=== PATIENT | female | born 1950 | race Two or more races ===

== ENCOUNTER 2025-06-09 16:07 | Outpatient (AMB) | payer OTHER, SELFPAY ==
--- NOTE | 2025-06-09 16:10 | A.OFFVIS_ITS ---
Intake Visit Reasons: 6 months follow up Allergies No Known Allergies Allergy (Verified 03/23/25 11:29) HPI Comments Details: 74 y/o woman with depression, anxiety, asthma, GERD, cerebral microvascular disease, mild cognitive impairment, and tremor affecting her hands, head, and speech. She is presenting for a follow-up visit for management of tremor and discussion of a recent fall with wrist fracture. The patient reports a recent fall in her kitchen, which resulted in a broken wrist. She denies any loss of consciousness associated with the fall and is scheduled for a follow-up appointment with an orthopedist. The patient has a history of tremor treated with primidone three times daily and propranolol twice daily. She clarifies that she takes propranolol for her tremor, not for hypertension, and mentions that this often causes confusion for other doctors. The patient also takes fluoxetine, clonazepam, and an unspecified sleeping pill. [facility] Medical History (Updated 06/09/25 @ 16:14 by Violeta Mello MD) Cerebral microvascular disease MCI (mild cognitive impairment) Depression with anxiety Tremor of face and hands Review of Systems Narrative - Neurological: Denies loss of consciousness with a recent fall. - Musculoskeletal: Reports a recent fall resulting in a broken wrist. - Psychiatric: Reports her mood is okay. - Sleep: Reports taking sleeping pills. - Cardiovascular: Denies high blood pressure. Physical Exam Neuro Other: Mental Status: Alert and oriented to person, place, and time. Normal attention. Normal spontaneous speech, fluency, and comprehension. Cranial Nerves: CN II: Visual thurman full to confrontation, visual acuity intact. CN III, IV, : Pupils equal, round, reactive to light and accommodation. Extraocular movements are normal. CN V: Facial sensation is normal. CN VII: Facial movements symmetrical. CN VIII: Hearing intact to bedside conversation is normal. CN IX, X: Palate elevates symmetrically. CN XI: Shoulder shrug and head turn symmetrical. CN XII: Tongue midline without atrophy or fasciculations. Motor: Bulk and tone normal in all extremities. No significant muscle weakness in arms and legs. No drift. Reflexes: Deep tendon reflexes 2+ and symmetric. Plantar response down-going bilaterally. Coordination: [id number]-[id number] and [id number] testing normal. No dysmetria. Gait and Station: No obvious gait abnormality. No ataxia or instability. Sensory: Intact to light touch, pinprick, and vibration. Romberg is negative. Extrapyramidal: Full facial expressions and blinking. No rigidity. Movements are appropriate with no significant tremor or abnormality. Speech: Normal; no dysarthria or tremor. Assessment & Plan Assessment & Plan (1) Tremor: Comment: CT brain WO at in Aug 2014: mild bifrontal atrophy MRI brain WO at in 2010: non specific WM abnormalities (reported). Code(s): R25.1 - Tremor, unspecified Category: Medical Plan Impression: Benign essential tremor Rec: a: Primidone 50mg, 3, three times a day b: Propranalol 20m, 2 times a day I reviewed the patient's condition and recent fall, which resulted in a broken wrist. I informed her that a head CT is not needed at this time as she did not lose consciousness. We discussed her medications, clarifying that propranolol is for her tremor and not hypertension. I confirmed she continues to take primidone, fluoxetine, and clonazepam. I will send her prescriptions. She was advised to continue with her orthopedic follow-up for the wrist fracture and to be careful to avoid further injury. Medications: Changed From primidone 150 mg (3 x 50 mg) PO BID 30 days 180 tabs 5RF To primidone 150 mg (3 x 50 mg) PO BID 540 tabs 1RF 90 days Refilled propranolol 20 mg PO ONCE 90 tabs 1RF Coding Level of Care Code Est Pt Level 3 (23344) Diagnoses Tremor R25.1
--- OUTSIDE RECORDS SUMMARY | 2025-06-10 00:47 | XMS_ITS | Encounter Summary ---
Author Organization [facility] Address [address] [place] [address] Care Team Providers Care Program Administrator Name Role Phone Nadia Barker MD Primary Care Prov ider Reason for Visit * Reason Onset Date Comments Results 05/10/2025 Encounter Details Date Type Department Care Team (Late st Contact Info) Description 05/10/2025 Telephone Adult Medicine [address] [phone] Nadia Barker MD [address] [place] [address] Social History Tobacco Use Types Packs/Day Years Used Date Smoking Tobacco: Former Cigarettes 28.3 0 1991 - 01/13/2020 Smokeless Tobacco: Never Alcohol Use Standard Drinks/Week Comments No 0 (1 standard drink = 0.6 oz pur e alcohol) Comments No Sex and Gender Information Value Date Recorded Sex Assigned at Female 05/25/2024 9:08 PM EST Legal Sex Female 2:15 AM EST Gender Identity Female 05/25/2024 9:08 PM EST Sexual Orientation Straight 05/25/2024 9: 08 PM EST documented as of this encounter Progress Notes * Cassia Costa RN - 05/13/2025 12:18 PM EST Called pt. She states she is all set she received the letter of her ultrasound results * Shavon A Say - 05/10/2025 2:34 PM EST Inform patient: ANY URGENT OR ABNORMAL RESULTS WIILL RESULT IN A CALL BACK TO THE PATIENT HANNAH. Type of test: :vascular ultrasound Date test was performed: 04/30/2025 Where was the test performed: [facility] Who ordered this test?: Nadia Aldridge MD Is the doctor here today?: yes Can the message wait until the doctor returns?: no IF PATIENT'S PCP IS NOT IN INSTRUCT PATIENT THAT THEY WILL RECEIVE A CALL BACK WHEN THE PCP IS IN THE OFFICE NEXT. documented in this encounter Plan of Treatment Upcoming Encounters Date Type Department Care Team (Late st Contact Info) Description 07/14/2025 1:00 PM EST Office Visit Orthopedic Surgery - [place] [address] [facility] [address] [place] [phone] Darien Urias, DPM [address] [address] 10/04/2025 12:30 PM EDT Office Visit Adult Medicine [address] [phone] Nadia Barker MD [address] [place] [address] 02/11/2026 3:00 PM EDT Office Visit Gastroenterology - [address] [facility] [address] [place] [phone] Criss Cooper NP [address] [facility] [address] [place] [address] 05/04/2026 2:00 PM EST Office Visit Pulmonology - [place] [address] [facility] [address] [place] [phone] Isaiah Jorge MD [address] [place] [phone] documented as of this encounter Visit Diagnoses Not on filedocumented in this encounter Additional Health Concerns Assessment Noted Time PHQ-9 Depression Total Score: 0 09/30/19 11:35 AM EDT A fall risk assessment has been complete d for the patient 09/29/2024 11:33 AM EDT documented as of this encounter Care Teams Program Administrator Relationship Specialty Start Date End Date Nadia Barker MD [address] [place] [phone] PCP - General Internal Medicine 05/25/24 documented as of this encounter
--- OUTSIDE RECORDS SUMMARY | 2025-06-10 00:47 | XMS_ITS | Clinical Summary ---
Author Organization [facility] [address] [place] [address] [address] [place] [address] Phone Care Team Providers Care Sales Advisory Manager Name Role Phone Nadia Barker MD Primary Care Prov ider Allergies No known active allergies Medications calcium carbonate-vitam in D3 500 mg-3.125 mcg (125 unit) tablet per tabelt Take 500 mg by mouth. 3 Active calcium carbonate-vitam in D (Oysco 500/D) 500 mg-5 mcg (200 unit) per tablet Take 1 tablet by mouth 1 (one) time each day. 3 Active clonazePAM (KlonoPIN) 1 mg tablet Take 1 tablet (1 mg total) by mouth. Active docusate sodium (COLACE) 100 mg capsule Take 1 capsule (100 mg total) by mouth 2 (two) times a day. 3 Active FLUoxetine (PROzac) 40 mg capsule Take 1 capsule (40 mg total) by mouth. Active fluticasone-jeanne meterol (Wixela Inhub) 250-50 mcg/dose diskus inhaler Inhale 1 puff by mouth 2 (two) times a day. 3 Active glycerin (adult) suppository Insert 1 suppository (2 g total) into the rectum. 1 Active hydrOXYzine pamoate (VISTARIL) 25 mg capsule TAKE 1 TO 2 CAPSULES BY MOUTH FOUR TIMES DAILY NEEDED 2 Active primidone (MYSOLINE) 50 mg tablet Take 1 tablet (50 mg total) by mouth. Active propranoloL (INDERAL) 20 mg tablet Take 1 tablet (20 mg total) by mouth. Active polyethylene glycol 3350 (GLYCOLAX ORAL) MIX 17 GRAMS IN LIQUID AND DRINK BY MOUTH DAILY 3 Active calcium carbonate (Antacid, calcium carbonate,) 500 mg (200 mg elemental calcium) chewable tablet Chew 1 (one) time each day. 3 Active cyclobenzaprine (FLEXERIL) 10 mg tablet Take 1 tablet (10 mg total) by mouth 3 (three) times a day if needed. 4 Active naproxen (NAPROSYN) 500 mg tablet Take 1 tablet (500 mg total) by mouth 2 (two) times a day with meals. 4 Active magnesium aspart,citrate, oxide (Triple Magnesium Complex) 400 mg magnesium capsule Take 1 capsule by mouth 1 (one) time each day. 4 Active linaCLOtide (Linzess) 290 mcg capsule Take 1 capsule (290 mcg total) by mouth. 4 Active famotidine (PEPCID) 20 mg tablet Take 1 tablet (20 mg total) by mouth 2 (two) times a day. 4 Active albuterol HFA (Ventolin HFA) 90 mcg/actuation inhaler Inhale 2 puffs by mouth every 4 (four) hours if needed for wheezing or shortness of breath. 6.7 g 2 5 Active fluticasone propionate (FLONASE) 50 mcg/actuation nasal spray INSTILL 2 SPRAYS IN EACH NOSTRIL DAILY 16 g 1 5 Active cyanocobalamin (VITAMIN B-12) 1,000 mcg tablet Take 1 tablet (1,000 mcg total) by mouth 1 (one) time each day. 90 tablet 5 Active cetirizine (ZyrTEC) 10 mg tablet Take 1 tablet (10 mg total) by mouth 1 (one) time each day. 30 tablet 5 Active ibuprofen (ADVIL,MOTRIN) 600 mg tablet TAKE 1 TABLET BY MOUTH EVERY 8 HOURS NEEDED FOR PAIN 20 tablet 5 Active cholecalciferol (VITAMIN D-3) 50 mcg (2,000 unit) tablet TAKE 1 TABLET BY MOUTH DAILY 30 tablet 5 5 Active omeprazole (PriLOSEC) [address] capsule TAKE 1 CAPSULE BY MOUTH DAILY 30 capsule 5 5 Active aspirin 81 mg EC tablet TAKE 1 TABLET BY MOUTH DAILY 30 tablet 5 5 Active plecanatide (Trulance) 3 mg tablet Take 1 tablet (3 mg total) by mouth 1 (one) time each day. 90 each 3 5 026 Active Trulance 3 mg tablet TAKE 1 TABLET BY MOUTH DAILY. 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 Traumatic ecchymosis of multiple sites of left u pper arm 04/23/2019 Lumbar spondylosis 08/06/2018 Hives of unknown origin 03/19/2017 Transaminitis 02/18/2017 Colon polyp 11/13/2015 Overview (09/09/2023): 11/07/15 colonoscopy - 1cm tubular adenoma Rpt 3 yrs Lung nodule, multiple 10/28/2015 Overview (09/09/2023): Bein followed byt Dr. Isaiah Jorge, next repeat chest ct in 6 month in 03/2016 Chronic rhinitis 09/13/2015 Thick nasal mucus 09/13/2015 Overview (09/09/2023): Egd neg 11/07/15, normal esoph bx Thyroid nodule 08/11/2015 Overview (09/09/2023): [facility] neck ct showing rigth thyroid nodule 08/03/2015 Dysphagia 07/06/2015 Eye dryness 06/02/2014 Overview (09/09/2023): Patient is following with [facility] and she is prescribed Restasis/artifical tears History of cholecystectomy 02/08/2014 DJD (degenerative joint disease), ankle and foot 10/29/2013 Foot pain, right 07/15/2013 Cervical spine disease 11/27/2012 Overview (09/09/2023): Patient had disc surgery with Dr Mohan on 09/2012 Essential tremor 11/27/2012 Overview (09/09/2023): On Propranolol Degenerative arthritis of thumb, right 3 COPD (chronic obstructive pulmonary disease) 01/2012 Assessment & Plan (04/06/2025 2:39 PM EDT): Well controlled, no visits to emergency or exacerbations. Continue albuterol as needed, Wixela as a controller medication. Assessment & Plan (10/06/2024 10:41 AM EDT): Recent exacerbation that required ER evaluation. She feels better now. Continue Albuterol prn. Assessment & Plan (09/29/2024 12:03 PM EDT): Orders: Nebulizer Head ache 08/14/2011 High cholesterol 07/07/2010 RCT (rotator cuff tear) 02/07/2010 Tobacco use disorder 02/07/2010 Anxiety state 06/11/2006 Idiopathic osteoporosis 06/11/2006 Encounters Date Type Department Care Team Description 06/04/2025 Telephone Gastroenterology [facility] 175 [facility] 175 [facility] [address] [place] [phone] Criss Cooper NP 05/25/2025 12:30 PM EST Ancillary Procedure [facility] Cardiology [facility] [address] [phone] Bilateral leg edema; Dizziness 05/10/2025 Telephone Adult Medicine [address] [phone] Nadia Smith MD 05/03/2025 2:00 PM EST Office Visit Pulmonology [facility] 175 [facility] [address] [place] [phone] Isaiah Jorge MD Mild persistent asthma, unspecified whether complicated (Primary Dx); Cough, unspecified type 04/30/2025 12:00 PM EDT Ancillary Procedure [facility] [address] [phone] Bilateral leg edema 04/30/2025 Results Follow-Up Adult Medicine [address] [phone] Fanny Muhammad PA 04/08/2025 Results Follow-Up Adult Medicine [address] [phone] Karla Jeffries PA 04/06/2025 1:00 PM EDT Office Visit Adult Medicine [address] [phone] Nadia Smith MD Chronic obstructive pulmonary disease, unspecified COPD type (CMS/HCC V24, CMS/HCC V28) (Primary Dx); Bilateral leg edema from Last 3 Months Immunizations Immunization Administration Dates Next Due Influenza trivalent, 0.5mL ( Fluzone High-dose) 65yo and older 04/30/2022,05/08/2021,04/11/2020,04/03,03/11/2018,03/19/2017 Influenza trivalent, 0.5mL, preservative free (Fluarix; FluLaval; Fluzone) ages 6mo and older (Afluria) 3 years and older 04/30/2022 Influenza trivalent, with pr eservative (Fluzone; Afluria) 6mo and older 04/04/2016,03/09/2015,04/04/2014,04/02,03/28/2012,04/19/2011,04/22/2010 ,03/31/2009,03/22/2008,05/29/2007,05/31 Pneumococcal conjugate 13 va lent (Prevnar 13, PCV13) 2mo and older 07/24/2017 Pneumococcal polysaccharide 23 valent (Pneumovax 23) 2yo and older 09/18/2018,04/07/2016,10/30/2011,07/07 Td Tetanus diptheria (Tdvax) 7yo and older 06/02/2003,06/02/2003 Tdap Tetanus diptheria acell ular pertussis (Boostrix; Adacel) 7yo and older 03/23/2019,05/07/2016,01/26/2016,06/02 Surgical History Surgery Date Site/Laterality Comments TUBAL LIGATION PROCEDURE: HISTORICAL TUBAL LIGATION TONSILLECTOMY PROCEDURE: HISTORICAL TONSILLECTOMY ROTATOR CUFF REPAIR 2009 PROCEDURE: HISTORICAL ROTATOR CUFF REPAIR SHOULDER ARTHROSCOPY 04/14/2012 PROCEDURE: CO SURGICAL ARTHROSCOPY SHOULDER W/LSS&RESCJ ADS; COMMENT: Dr. Coats OTHER SURGICAL HISTORY PROCEDURE: ---- OTHER ----; COMMENT: foot bone spure removal FOOT SURGERY PROCEDURE: HISTORICAL FOOT SURGERY OTHER SURGICAL HISTORY PROCEDURE: ---- OTHER ----; COMMENT: cervical spine surgery UPPER GASTROINTESTINAL ENDOSCOPY 11/07/2015 PROCEDURE: CO UPPER GI ENDOSCOPY PERFORMED; COMMENT: Random esophageal biopsies=> normal, otherwise normal COLONOSCOPY 11/07/2015 PROCEDURE: HISTORICAL COLONOSCOPY; COMMENT: 1 cm polyp at 30 cm => tubular adenoma, 4 mm anal verge polyp=> hyperplastic COLONOSCOPY 05/13/2012 PROCEDURE: HISTORICAL COLONOSCOPY; COMMENT: normal UPPER GASTROINTESTINAL ENDOSCOPY 05/13/2012 PROCEDURE: CO UPPER GI ENDOSCOPY PERFORMED; COMMENT: normal COLONOSCOPY 2004 PROCEDURE: HISTORICAL COLONOSCOPY; COMMENT: normal COLONOSCOPY 03/11/2020 PROCEDURE: HISTORICAL COLONOSCOPY; COMMENT: 4 mm rectal polyp. Path: Tubular adenoma. 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 Chronic constipation DX:Chronic constipation Small bowel obstruction (CMS /HCC V24, CMS/HCC V28) DX:Small bowel obstruction ( HCC) Cervical spondylosis without myelopathy DX:Cervical spondylosis with out myelopathy Depressive disorder DX:Depressiv e disorder Hyperlipidemia DX:Hyperlipidemi a Esophageal reflux DX:Esophageal reflux Constipation DX:Constipation Family History Medical History Relation Name Comments Brain cancer Aunt Diabetes Brother Heart attack Father Stomach cancer Mother Hypertension Sister 1 Colon polyps Sister 2 three sisters Colon cancer Neg Hx Relation Name Status Comments Aunt Brother Father Mother Sister 1 Sister 2 Social History Tobacco Use Types Packs/Day Years Used Date Smoking Tobacco: Former Cigarettes 28.3 0 1991 - 01/13/2020 Smokeless Tobacco: Never Tobacco Cessation:Counseling Given: Not Answered Alcohol Use Standard Drinks/Week Comments No 0 (1 standard drink = 0.6 oz pur e alcohol) Comments No Sex and Gender Information Value Date Recorded Sex Assigned at Female 05/25/2024 9:08 PM EST Legal Sex Female 2:15 AM EST Gender Identity Female 05/25/2024 9:08 PM EST Sexual Orientation Straight 05/25/2024 9: 08 PM EST Last Filed Vital Signs Vital Sign Reading Time Taken Comments Blood Pressure 138/75 05/25/2025 1:31 PM EST Pulse 70 05/03/2025 2:02 PM EST Temperature 36.2 C (97.2 F) 05/03/2025 2:02 PM EST Respiratory Rate 16 05/03/2025 2:02 PM EST Oxygen Saturation 98% 05/03/2025 2:02 PM EST Inhaled Oxygen Concentration - - Weight 74.8 kg (165 lb) 05/25/2025 1:31 PM EST Height 157.5 cm (5' 2 ) 05/25/2025 1:31 PM EST Body Mass Index 30.18 05/25/2025 1:31 PM EST Plan of Treatment Upcoming Encounters Date Type Department Care Team (Late st Contact Info) Description 07/14/2025 1:00 PM EST Office Visit Orthopedic Surgery - [place] [address] 175 [facility] [address] [place] [phone] Darien Urias, RENZO 175 [facility] [address] [place] [address] 10/04/2025 12:30 PM EDT Office Visit Adult Medicine [facility] [address] [place], [place] [phone] Nadia Barker MD [address] [place], [place] 02/11/2026 3:00 PM EDT Office Visit Gastroenterology - 299 [facility] 299 [facility] [address] [place] [phone] Criss Cooper, BETI 299 [facility] [address] [place] [address] 05/04/2026 2:00 PM EST Office Visit Pulmonology - [place] 175 [facility] [address] [place] [phone] Isaiah Jorge MD [address] [place] [phone] Health Maintenance Due Date Last Done Comments Drug Screen 1950 Non-Opioid Controlled Substance Agreement 1950 RSV Immunization Adult Patients (1 - Risk 50-74 years 1-dose series) 10/07/2001 Osteoporosis Screening (Bone Density Screening) 02/16/2024 02/15/2022, 05/19/2019 COVID-19 Vaccine ( season) 2025 06/13/2021, 10/14/2020, 09/23/2020 Influenza Vaccine (#1) 2025 , 04/30/2022, 05/08/2021, Additional history exists Breast Cancer Screening 07/17/2025 07/17/2023 Falls Risk Assessment 09/29/2025 09/29/2024, 024 Social Influencers of Health Screening 09/29/2025 09/29/2024 Colorectal Cancer Screening: Colonoscopy 05/01/2026 05/01/2021 Cholesterol Screening (Lipid Panel) 01/15/2028 01/14/2023 DTaP,Tdap,and Td Vaccines (7 - Td or Tdap) 03/23/2029 03/23/2019, 05/07/2016, 01/26/2016, Additional history exists Pneumococcal Vaccine: 50+ Years Completed 09/18/2018, 07/24/2017, 04/07/2016, Additional history exists Hepatitis C Screening Completed 10/19/2019 Depression Screening Completed 09/29/2024 Medicare Annual Wellness Visit Discontinued 09/29/2024 HIB Vaccines Aged Out No longer eligi ble based on patient's age to complete this topic HPV Vaccines Aged Out No longer eligi ble based on patient's age to complete this topic Hepatitis A Vaccines Aged Out No long er eligible based on patient's age to complete this topic Hepatitis B Vaccines Aged Out No long er eligible based on patient's age to complete this topic IPV Vaccines Aged Out No longer eligi ble based on patient's age to complete this topic MMR Vaccines Aged Out No longer eligi ble based on patient's age to complete this topic Meningococcal ACWY Vaccine Aged Out N o longer eligible based on patient's age to complete this topic Meningococcal B Vaccine Aged Out No l onger eligible based on patient's age to complete this topic RSV Immunization Patients Under 20 months Aged Out No longer eligible based on patient's age to complete this topic Varicella Vaccines Aged Out No longer eligible based on patient's age to complete this topic Zoster Vaccines Discontinued Procedures Procedure Name Priority Date/Time Associated Diagnosis Comments TRANSTHORACIC ECHOCARDIOGRAM (TTE) COMPLETE Routine 05/26/2025 9:46 AM EST Bilateral leg edema Dizziness VAS US DUPLEX LOWER EXT VENOUS INSUFFICIENCY BILATERAL Routine 04/30/2025 12:27 PM EDT Bilateral leg edema THYROID STIMULATING HORMONE Routine 04/06/2025 2:00 PM EDT Bilateral leg edema DXA BONE DENSITY STUDY 1+ SITS AXIAL SKEL Routine 02/15/2022 3:10 PM EDT Other osteoporosis without current pathological fracture EXTERNAL COLONOSCOPY REPORT Routine 05/01/2021 2:27 PM EDT from Last 3 Months or Most Recently Relevant to Health Maintenance Results * (ABNORMAL) TRANSTHORACIC ECHOCARDIOGRAM (TTE) COMPLETE (05/26/2025 9:46 AM EST) Left Atrium Minor [place] 5.2 cm CV PACS Left Atrium Major [place] 5.3 cm CV PACS LA Area Sys (A2C) 17 cm2 CV PACS LA Area Sys (A4C) 17 cm2 CV PACS LA Volume (BP) 45 mL CV PACS LA Size 3.8 cm CV PACS RA Area 12.0 cm2 CV PACS RA 2D Volume 27 mL CV PACS AV Regurgitation PHT 465 ms CV PACS AV Regurgitation PHT 601 ms CV PACS AR Max Velocity 4.4 m/s CV PACS AV Regurgitant Volume 77 mmHg CV PACS AV Peak Travis 1.3 m/s CV PACS AV Peak Travis 1.3 m/s CV PACS AV Peak Gradient 7 mmHg CV PACS AV Mean Gradient 3 mmHg CV PACS AV Mean Gradient 3 mmHg CV PACS Ao VTI 27.4 cm CV PACS AV Area Continuity Equation 2.3 cm2 CV PACS AV Area Peak Velocity 2.3 cm2 CV PACS Aortic Arch 2.3 cm CV PACS Ascending Aorta 3.5 cm CV PACS Aortic Sinus Valsalva 3.3 cm CV PACS IVSD 1.0(A) 0.6 - 0.9 cm CV PACS LVIDD 4.7 3.8 - 5.2 cm CV PACS LVIDS 3.2 2.2 - 3.5 cm CV PACS LVOT Diameter 2.0 cm CV PACS LVOT Mean Travis 0.5 m/s CV PACS LVOT Mean Grad 2 mmHg CV PACS LVOT Peak VTI 20.5 cm CV PACS LVOT Peak Travsi 1.0 m/s CV PACS LVOT Peak Travis 1.0 m/s CV PACS LVOT Peak Gradient 4 mmHg CV PACS LVPWD 1.0(A) 0.6 - 0.9 cm CV PACS MV E' Tissue Velocity Lateral 8 cm/s CV PACS MV E' Tissue Velocity Septal 8 cm/s CV PACS LVOT Area 3.1 cm2 CV PACS LVOT Stroke Volume 64 mL CV PACS MV Deceleration [place] 4.6 m/s2 CV PACS E Wave Deceleration Time 185 119 - 242 ms CV PACS MV PHT 55 ms CV PACS MV Peak A Travis 0.87 m/s CV PACS MV Peak E Travis 0.87 m/s CV PACS MV Mean Gradient 1 mmHg CV PACS MV Mean Gradient 1 mmHg CV PACS MV Mean Gradient 1 mmHg CV PACS MV Mean Gradient 1 mmHg CV PACS MV VTI 29.3 cm CV PACS Mitral Valve Max Velocity 0.9 m/s CV PACS MV Peak Gradient 3 mmHg CV PACS MV Area PHT 4.0 cm2 CV PACS MV Area Continuity Equation 2.2 cm2 CV PACS PV Acceleration Time 113 ms CV PACS PV Acceleration Time 92 ms CV PACS PV Acceleration Time 103 ms CV PACS PV Mean Gradient 1 mmHg CV PACS PV VTI 13.2 cm CV PACS PV Peak Velocity 0.7 m/s CV PACS PV Peak Gradient 2 mmHg CV PACS RV Diastolic Basal Dimension 3.3 2.5 - 4.1 cm CV PACS RV S' 7 cm/s CV PACS TAPSE 21 mm CV PACS TR Peak Velocity 2.33 m/s CV PACS TR Peak Gradient 22 mmHg CV PACS E/E' Ratio Septal 11 CV PACS E/E' Ratio Averaged 11 CV PACS LVOT Stroke Index 36 mL/m2 CV PACS LA Dimension Index 2D 2.2 cm/m2 CV PACS Relative Wall Thickness ratio 0.43 CV PACS LVOT:AV VTI Index 0.75 CV PACS FS 32 % CV PACS LV Mass 2D 164 g CV PACS Ascending Aorta Index 1.99 cm/m2 CV PACS MV VTI:LVOT VTI ratio 1.4 CV PACS LVOT flow 157 mL/s CV PACS RA 2D Volume Index 15 mL/m2 CV PACS NILTON Index (VTI) 1.33 cm2/m2 CV PACS NILTON Index (Pk Travis) 1.31 cm2/m2 CV PACS LVIDD Index 2.67 cm/m2 CV PACS LVIDS Index 1.82 cm/m2 CV PACS E/A Ratio 1.0 CV PACS E/E' Ratio Lateral 11 CV PACS LA Volume Index (BP) 26 mL/m2 CV PACS LV Mass Index 2D 93 g/m2 CV PACS BSA 1.81 m2 CV PACS Right Ventricular Peak Systolic Pressure 25 mmHg CV PACS Est. RA Pressure 3 mmHg CV PACS Anatomical Region Laterality Modality Ultrasound Narrative 06/01/2025 1:39 PM EST Left ventricle cavity size is normal. Left ventricular systolic function is in the normal range with an ejection fraction of 60-65%. No wall motion abnormalities. Normal wall thickness. Normal diastolic function. Right ventricle cavity is normal. Size and function is normal. Normal left and right atrium. Aortic valve leaflets are mildly thickened. No stenosis. 1+ eccentric insufficiency. Trace mitral insufficiency. Trace TR with normal estimated PA systolic pressures. No prior echo for comparison. Left Ventricle Left ventricle cavity size is normal. Wall thickness is normal. Systolic function is normal with an ejection fraction of 60-65%. There are no regional LV wall motion abnormalities. There is no diastolic dysfunction. Right Ventricle Right ventricle cavity appears normal. Systolic function is normal. Left Atrium Left atrium cavity size is normal. Right Atrium Right atrium cavity is normal. IVC/SVC Inferior vena cava structure is normal. RA pressures is estimated to be 3 mmHg (IVC diameter <21 mm and decreases >50% during inspiration). Mitral Valve The leaflets are mildly thickened. There is mild annular calcification. There is trace regurgitation. There is no evidence of mitral valve stenosis. Tricuspid Valve Tricuspid valve structure is normal. There is trace regurgitation. There is no evidence of tricuspid valve stenosis. The right ventricular systolic pressure is normal. Aortic Valve The aortic valve is trileaflet. The leaflets are mildly thickened. There is mild regurgitation with a eccentrically directed jet. There is no evidence of aortic valve stenosis. Pulmonic Valve There is no regurgitation or stenosis. Ascending Aorta The aorta appears normal in size. Pericardium Pericardium appears normal. There is no pericardial effusion. Study Details Overall the study quality was adequate. us Fanny Jb RODRIGUEZ CV ECHO PROCEDURES Final Result * Vascular US duplex lower extremity venous insufficiency bilateral (04/30/2025 12:27 PM EDT) Left GSK kalee 0.39 cm CV VAS LAB Left GSDC kalee 0.22 cm CV VAS LAB Left GSMT kalee 0.46 cm CV VAS LAB Left GSPC kalee 0.34 cm CV VAS LAB Left GSPT kalee 0.42 cm CV VAS LAB Left SFJ Diameter 0.73 cm CV VAS LAB Left SSMC kalee 0.16 cm CV VAS LAB Left SSPC kalee 0.17 cm CV VAS LAB Right GSK kalee 0.29 cm CV VAS LAB Right GSDC kalee 0.31 cm CV VAS LAB Right GSMT kalee 0.46 cm CV VAS LAB Right GSPC kalee 0.31 cm CV VAS LAB Right GSPT kalee 0.45 cm CV VAS LAB Right SFJ Diameter 0.67 cm CV VAS LAB Right SSMC kalee 0.18 cm CV VAS LAB Right SSPC kalee 0.21 cm CV VAS LAB Right GSPT reflux 1,728 ms CV VAS LAB Right GSMT reflux 1,394 ms CV VAS LAB Right GSK reflux 4,439 ms CV VAS LAB Right GSPC reflux 4,445 ms CV VAS LAB Anatomical Region Laterality Modality Vascular, Abdomen Ultrasound Narrative 04/30/2025 3:55 PM EDT Right No right deep vein thrombosis. Right deep veins are competent. Right superficial veins have no thrombosis. Right GSV has mild reflux at thigh location but significant reflux at the knee and below knee locations. Right SSV has no significant reflux. Left No left deep vein thrombosis. Left deep veins are competent. Left superficial veins have no thrombosis. Left GSV has no significant reflux. Left SSV has no significant reflux. Right Lower Venous No evidence of deep vein thrombosis in the common femoral, deep femoral, proximal femoral, mid femoral, distal femoral, popliteal, greater saphenous, small saphenous, posterior tibial and peroneal veins of the right leg. The vessels showed compressibility. Interrogation showed phasic and spontaneous Doppler signals. Right Venous Insufficiency Duplex The exam was performed with the patient in reverse Trendelenburg. Left Lower Venous No evidence of deep vein thrombosis in the common femoral, deep femoral, proximal femoral, mid femoral, distal femoral, popliteal, greater saphenous, small saphenous, posterior tibial and peroneal veins of the left leg. The vessels showed compressibility. Interrogation showed phasic and spontaneous Doppler signals. Left Venous Insufficiency Duplex The exam was performed with the patient in reverse trendelenburg. Steam Shovelman Details A govea scale, color and doppler analysis ultrasound was performed. During the study longitudinal and transverse views were obtained. Pulsed wave doppler was performed. us Fanny RODRIGUEZ CV VASCULAR PROCEDURES Final Res ult * Thyroid stimulating hormone (04/06/2025 2:00 PM EDT) TSH 0.94 0.40 - 4.00 mcIU/mL LAB CHEMISTRY METHOD 04/06/2025 5:39 PM EDT [facility] Blood Venous blood specimen / Unknown Venipuncture / Unknown 04/06/2025 2:00 PM EDT 04/06/2025 2:00 PM EDT us Nadia Barker MD LAB BLOOD ORDERABL ES Final Result [facility] [address] [place] [address], [place] [phone] * DXA BONE DENSITY STUDY 1+ SITS AXIAL SKEL (02/15/2022 3:10 PM EDT) Anatomical Region Laterality Modality Bone Densitometr y 08/11/2021 3:36 PM EST Narrative 02/15/2022 5:39 PM EDT BONE DENSITY Lumbar Spine T-score is -2.5 (SD relative to 20-29 y/o adult) Z-score is -0.4 (SD relative to age matched peers) This is consistent with osteoporosis by criteria defined by the WHO. Left Hip T-score is -2.3 Z-score is -0.6 This is consistent with osteopenia by criteria defined by the WHO. Comparison exam(s): significant increase in bone density of lumbar spine when compared to most recent bone density examination Confidence level is +/-95%. Impression: Based on the World Health Organization criteria, Debbie Garrison should be classified as having osteoporosis. The [facility] Department of Internal Medicine recommends using National Osteoporosis Foundation (NOF) guidelines in treatment decisions related to osteoporosis. NOF guidelines suggest considering treatment for postmenopausal women and men aged 50 or older presenting with the following: History of hip or vertebral fracture. T-score less than or equal to -2.5 (DXA) at the femoral neck, total hip, or spine, after appropriate evaluation to exclude secondary causes. Low bone mass (T-score between -1.0 and -2.5 at the femoral neck or spine) AND a 10-year probability of a hip fracture greater than or equal to 3% OR a 10-year probability of a major osteoporosis-related fracture greater than or equal to 20% based on the [place]-adapted WHO algorithm Please note that all treatment decisions require clinical judgment and consideration of individual patient factors, including patient preferences, co-morbidities, previous drug use, risk factors not captured in the FRAX model (e.g., frailty, falls, vitamin D deficiency, increased bone turnover, interval significant decline in bone density) and possible under- or over-estimation of fracture risk by FRAX. Procedure Note Gaby Riley MD - 06/19/2022 BONE DENSITY Lumbar Spine T-score is -2.5 (SD relative to 20-29 y/o adult) Z-score is -0.4 (SD relative to age matched peers) This is consistent with osteoporosis by criteria defined by the WHO. Left Hip T-score is -2.3 Z-score is -0.6 This is consistent with osteopenia by criteria defined by the WHO. Comparison exam(s): significant increase in bone density of lumbar spinewhen compared to most recent bone density examination Confidence level is +/-95%. Impression: Based on the World Health Organization criteria, Debbie Garrison should beclassified as having osteoporosis. [facility] Department of Internal Medicine recommendsusing National Osteoporosis Foundation (NOF) guidelines in treatmentdecisions related to osteoporosis. NOF guidelines suggest consideringtreatment for postmenopausal women and men aged 50 or older presentingwith the following: History of hip or vertebral fracture. T-score less than or equal to -2.5 (DXA) at the femoral neck, total hip,or spine, after appropriate evaluation to exclude secondary causes. Low bone mass (T-score between -1.0 and -2.5 at the femoral neck or spine)AND a 10-year probability of a hip fracture greater than or equal to 3% ORa 10-year probability of a major osteoporosis-related fracture greaterthan or equal to 20% based on the [place]-adapted WHO algorithm Please note that all treatment decisions require clinical judgment andconsideration of individual patient factors, including patientpreferences, co-morbidities, previous drug use, risk factors not capturedin the FRAX model (e.g., frailty, falls, vitamin D deficiency, increasedbone turnover, interval significant decline in bone density) and possibleunder- or over-estimation of fracture risk by FRAX. Donna Nash MD IMG DXA PROCEDURES Final Resu lt * External Colonoscopy Report (05/01/2021 2:27 PM EDT) Anatomical Region Laterality Modality Endoscopy Historical Provider GI~PROCEDURE ORDERABLES F inal Result from Last 3 Months or Most Recently Relevant to Health Maintenance Insurance [facility] Member Subscriber Plan / Payer (Ef fective 2017-Present) Name:Debbie Garrison Relation to Subscriber:Self Name:Debbie Garrison I Payer ID:[id number] Group ID:[id number] Type:Not on file Address: [facility] [address] Care Teams Sales Advisory Manager Relationship Specialty Start Date End Date Nadia Barker MD [address] [place] [address] PCP - General Internal Medicine 05/25/24
--- OUTSIDE RECORDS SUMMARY | 2025-06-10 00:47 | XMS_ITS | Encounter Summary ---
Author Organization [facility] Address [address] [place] [address] Care Team Providers Care Deck Molder Name Role Phone Nadia Barker MD Primary Care Prov ider Reason for Visit * Reason Onset Date Comments Rectal Discomfort 06/04/2025 Encounter Details Date Type Department Care Team (Late st Contact Info) Description 06/04/[address] [facility] 175 [facility] 175 [facility] 200 [place] [phone] Criss Cooper NP 299 [facility] [address] [place] [address] Social History Tobacco Use Types Packs/Day Years [...] as of this encounter Progress Notes * Mery Heller MA - 06/08/2025 11:10 AM EST Lm for patient again * Mery Heller MA - 06/04/2025 3:10 PM EST Lm for patient to call back, sounds like she needs a referral to colo rectal * Rhoda Terry - 06/04/2025 12:21 PM EST Patient called and said she has been having rectal discomfort - she does not know how to explain it- she says something is coming out of her rectum and not sure what it is and its not hemorrhoids. She said its wet and its not always there though, she tries to push it inside. Please contact and advise. Patient states she needs to be seen sooner. documented in this encounter Plan of Treatment Upcoming Encounters Date Type Department Care Team (Late st Contact Info) Description 07/14/2025 1:00 PM EST Office Visit Orthopedic Surgery - [place] [address] [phone] Darien Urias, RENZO [address] [address] 10/04/2025 12:30 PM EDT Office Visit Adult Medicine [address] [phone] Nadia Barker MD [address] [place] [address] 02/11/2026 3:00 PM EDT Office Visit Gastroenterology - 299 [place] [address] [phone] Criss Cooper NP [address] [address] 05/04/2026 2:00 PM EST Office Visit Pulmonology - [place] 175 [facility] [address] [place] [phone] Isaiah Jorge MD [address] [place] [phone] documented as of this encounter Visit Diagnoses Not on filedocumented in this encounter Additional Health Concerns Assessment Noted Time PHQ-9 Depression Total Score: 0 09/30/19 11:35 AM EDT A fall risk assessment has been complete d for the patient 09/29/2024 11:33 AM EDT documented as of this encounter Care Teams Deck Molder Relationship Specialty Start Date End Date Nadia Barker MD 4 [place] [address] PCP - General Internal Medicine 05/25/24 documented as of this encounter
--- OUTSIDE RECORDS SUMMARY | 2025-06-10 00:47 | XMS_ITS | Clinical Summary ---
Author Organization [facility] Address [address] [facility] [address] [place] [address] Care Team Providers Care Coat Finisher Name Role Phone Unavailable Primary Care Provider Unavailabl e Social History Tobacco Use Types Packs/Day Years Used Date Smoking Tobacco: Never Assessed Comments Unknown Sex and Gender Information Value Date Recorded Sex Assigned at Not on file Legal Sex Female 12:07 PM EST Gender Identity Not on file Sexual Orientation Not on file Plan of Treatment Health Maintenance Due Date Last Done Comments CT Colonography 1951 Colonoscopy 1951 Colorectal Cancer Screening 1951 Depression Screening 1950 FIT DNA/Cologuard 1951 FIT 1951 FOBT 1951 Sigmoidoscopy 1951 Alcohol/Substance Use Screening 1963 Tobacco Screening 1963 DTaP/Tdap/Td Vaccines (1 - Tdap) 10/07/1970 Mammogram 1991 Pneumococcal Vaccine: 50+ Ye ars (1 of 1 - PCV) 10/07/2001 Zoster Vaccines (1 of 2) 10/07/2001 COVID-19 Vaccine (1 - 2024-2 6 season) 2025 Influenza Vaccine (#1) 2025 RSV Patients and Pa tients Aged 60 years or older (1 - 1-dose 75+ series) 10/07/2026 HIB Vaccines Aged Out No longer eligi [...] patient's age to complete this topic Meningococcal Vaccine Aged Out No chaparrita cody eligible based on patient's age to complete this topic RSV under 20 months Aged Out No longe r eligible based on patient's age to complete this topic Rotavirus Vaccines Aged Out No longer eligible based on patient's age to complete this topic
--- OUTSIDE RECORDS SUMMARY | 2025-06-10 00:47 | XMS_ITS | Clinical Summary ---
Author Organization [facility] Address [address] [facility] [address] [place] [phone] Phone Care Team Providers Care Automobile Body Worker Name Role Phone Donna Nash MD Primary Care Provider [phone] Allergies No known active allergies Medications No known medications Active Problems Problem Noted Date Diagnosed Date Foot pain 02/11/2014 Overview (08/20/2014): Foot pain; Right; midft arthritis Social History Tobacco Use Types Packs/Day Years Used Date Smoking Tobacco: Former Smokeless Tobacco: Never Alcohol Use Standard Drinks/Week Comments No 0 (1 standard drink = 0.6 oz pur e alcohol) Education Answer Date Recorded Are you interested in more education? Not on bismark e 10/26/2022 Are you concerned about learning? Not on file 10/26/2022 No 10/26/2022 No 10/26/2022 Digital Access Answer Date Recorded No 11/26/2022 No 11/26/2022 No 11/26/2022 Reliable internet access at home? Not on file 11/26/2022 Device with a working camera? Not on file Comments Unknown Sex and Gender Information Value Date Recorded Sex Assigned at Not on file Legal Sex Female 10:14 AM EST Gender Identity Not on file Sexual Orientation Not on file Last Filed Vital Signs Vital Sign Reading Time Taken Comments Blood Pressure - - Pulse - - Temperature - - Respiratory Rate - - Oxygen Saturation - - Inhaled Oxygen Concentration - - Weight 63.5 kg (140 lb) 07/29/2015 3:59 PM EST Height - - Body Mass Index - - Plan of Treatment Health Maintenance Due Date Last Done Comments LIPID PANEL 1951 DEPRESSION SCREENING 1963 SMOKING Hx and SMOKELESS TOBACCO SCREENING 10/07/1964 HEPATITIS C SCREENING 10/07/1969 MAMMOGRAM 1991 COLOGUARD 10/07/1996 COLONOSCOPY 10/07/1996 COLORECTAL CANCER SCREENING 10/07/1996 FIT TEST 10/07/1996 FOBT 10/07/1996 SIGMOIDOSCOPY 10/07/1996 VIRTUAL COLONOSCOPY 10/07/1996 ZOSTER VACCINES (1 of 2) 10/07/2001 OSTEOPOROSIS SCREENING INITIAL (ONE-TIME) 10/07/2016 INFLUENZA VACCINE (#1) 2025 , 04/03/2019, 03/11/2018, Additional history exists COVID-19 VACCINE (2 - 2024- season) 2025 09/23/2020 RSV VACCINE (1 - 1-dose 75+ series) 10/07/2026 Adult Td,Tdap Booster 03/23/2029 03/23/2019 , 05/07/2016, 06/02/2014, Additional history exists PNEUMOCOCCAL VACCINES (50+ years) Completed 09/18/2018, 07/24/2017, 04/07/2016, Additional history exists HEPATITIS A VACCINES Aged Out No long er eligible based on patient's age to complete this topic HIB VACCINES Aged Out No longer eligi ble based on patient's age to complete this topic MENINGOCOCCAL VACCINES (ACWY) Aged Out No longer eligible based on patient's age to complete this topic MENINGOCOCCAL VACCINES (B) Aged Out N o longer eligible based on patient's age to complete this topic Medical Devices Not on file Insurance [employer] MED[employer]ARE REPLACEMENT [address] [address] [place] [address] MEDICARE REPLACEMENT MEDICARE REPLACEMENT [facility] CARE MEDICARE [place] [address] [address] [place] [address] CARE MEDICARE REPLACEMENT Care Teams Automobile Body Worker Relationship Specialty Start Date End Date Donna Nash MD [address] [place] [address] PCP - General Internal Medicine 10/03/15 Additional Source Comments The information contained in this document represents components of the legal health record. It is not the complete legal health record.[facility]
--- OUTSIDE RECORDS SUMMARY | 2025-06-10 00:47 | XMS_ITS | Encounter Summary ---
Author Organization [facility] Address [address] [place] [address] Care Team Providers Care Raise Miner Name Role Phone Nadia Barker MD Primary Care Prov ider Encounter Details Date Type Department Care Team (Late st Contact Info) Description 04/30/2025 Results Follow-Up Adult Medicine [facility] [address] [place], [place] [phone] Fanny Muhammad PA [address] [place], [place] Social History Tobacco Use Types Packs/Day Years [...] as of this encounter Progress Notes * Bryanna Quiroga MA - 06/08/2025 10:11 AM EST Called pt lvm to return my phone call. * JENNIFER Villatoro - 06/04/2025 4:05 PM EST Can you call patient and inform her of the following: I reviewed the echocardiogram with Dr. Griffith. Her echocardiogram revealed mild leaky valves, otherwise did not reveal any worrisome findings. No heart failure. No further evaluation at this time. documented in this encounter Plan of Treatment Upcoming Encounters Date Type Department Care Team (Late st Contact Info) Description 07/14/2025 1:00 PM EST Office Visit Orthopedic Surgery - [place] 250 175 [facility] 250 [place] [phone] Darien Urias DPM 175 [facility] 250 [place] [address] 10/04/2025 12:30 PM EDT Office Visit Adult Medicine [facility] [address] [place], [place] [phone] Nadia Barker MD [address] [place] [address] 02/11/2026 3:00 PM EDT Office Visit Gastroenterology - 299 [place] 299 [facility] [address] [place] [phone] Criss Cooper NP 299 [facility] [address] [place] [address] 05/04/2026 2:00 PM EST Office Visit Pulmonology - [place] 175 [facility] 200 [place] [phone] Isaiah Jorge MD 230 [place] [phone] documented as of this encounter Visit Diagnoses Not on filedocumented in this encounter Additional Health Concerns Assessment Noted Time PHQ-9 Depression Total Score: 0 09/30/19 25 11:35 AM EDT A fall risk assessment has been complete d for the patient 09/29/2024 11:33 AM EDT documented as of this encounter Care Teams Raise Miner Relationship Specialty Start Date End Date Nadia Barker MD [address] [place] [phone] PCP - General Internal Medicine 05/25/24 documented as of this encounter
== END 2025-06-09 16:17 | disposition home or self-care (01) ==
LOC: HO.HSM 16:07
PROVIDERS: PCP Internal Medicine; Visit Provider Psychiatry & Neurology Neurology
DX: R25.1 Tremor, unspecified (principal)
CPT/HCPCS: 99213

== ENCOUNTER → 2025-06-09 16:07 | Outpatient (BNVA) | payer OTHER, SELFPAY | PROVIDERS: PCP Internal Medicine; Visit Provider Psychiatry & Neurology Neurology | DX: G25.0 Essential tremor (principal); Z79.899 Other long term (current) drug therapy | CPT/HCPCS: 99212 ==